=== PATIENT | female | born 1960 | race African-American/Black ===

== ENCOUNTER 2017-06-15 21:50 | Inpatient (IN) | payer MEDICAID ==
[~2017-06-15] VITALS: Ht 162.6 cm; Wt 78.7 kg
[~2017-06-15 21:50] MED LIST: ALBU2.5V13 IH; ALPR1TAB2 PO; AMLO5TAB88 PO; ASCO500C15 PO; ATOR10TA PO; AZEL137S7 BOTHNSTRLS; Benzonatate PO; CHOL200074 PO; CYAN10009 PO; FAMO40TA70 PO; FLUT1DIS3 INH; FURO-152 PO; GABA-531 PO; IBUP-2028 PO; IPRA0.2S51 NEB; LOSA25TA12 PO; MONT10TA21 PO; PHEN57OI23 RC; PRED5TAB48 PO; SUCR1TAB PO
[2017-06-15] MEDS ORDERED: METHYLPREDNISOLONE SOD SUCC 125 MG/2 ML VIAL IV STA (21:56)
[2017-06-15] MEDS ORDERED: MAGNESIUM 2 G PREMIX 50 ML IV ONE (22:00)
[2017-06-15] MEDS ORDERED: IPRATROPIUM/ALBUTEROL 0.5-3(2.5)MG/3ML NEB HHN ONE (22:00)
[2017-06-15] MEDS ORDERED: IPRATROPIUM/ALBUTEROL 0.5-3(2.5)MG/3ML NEB ONE (22:03)
[2017-06-15] MEDS ORDERED: LEVOFLOXACIN 750MG PREMIX 150 ML IV ONE (22:15)
[2017-06-15 22:27] LABS: BG BASE EXCESS -10.6 mmol/L (-2.0-2.0); BG BILEVEL POS AIRWAY PRESSURE 15/5; BG CARBOXYHEMOGLOBIN 0.3 % (0.5-1.5); BG DEOXYHEMOGLOBIN 25.8 % (0.0-5.0); BG FRACTION INSPIRED OXYGEN 100; BG HCO3 ACT 17.1 mmol/L (22.0-26.0); BG METHEMOGLOBIN 0.4 % (0.0-1.5); BG OXYHEMOGLOBIN 73.5 % (94.0-97.0); BG PCO2 45.6 mmHg (35.0-45.0); BG PH 7.193 (7.350-7.450); BG PO2 42.5 mmHg (75.0-100.0); BG SAMPLE SITE RIGHT RADIAL; BG VENT MODE MASK - BIPAP; BG VENT RATE 20 set
[2017-06-15 23:10] LABS: BASOPHILS % 0.9 % (0.0-2.0); EOSINOPHILS % 0.5 % (0.0-5.0); HEMATOCRIT. 37.6 % (36.0-48.0); HEMOGLOBIN. 12.2 g/dL (12.0-16.0); LYMPHOCYTES % 24.7 % (20.0-50.0); MEAN CORPUSCULAR HEMOGLOBIN 29.2 pg (28.0-32.0); MEAN CORPUSCULAR VOLUME 90.3 fL (81.0-99.0); MEAN PLATELET VOLUME 9.8 fl (7.4-10.4); NEUTROPHILS % 66.9 % (40.0-76.0); PLATELET 206 x1000/uL (130-400); RED BLOOD CELL COUNT 4.17 mill/uL (4.2-5.4); RED CELL DISTRIBUTION WIDTH 15.6 % (11.6-14.6)
[2017-06-15 23:17] LABS: INR 1.1; PARTIAL THROMBOPLASTIN TIME 21.4 sec (23.4-31.0); PROTHROMBIN TIME 11.2 sec (9.4-11.6)
[2017-06-15 23:25] LABS: CARBON DIOXIDE 25 mEq/L (21-32); CHLORIDE 109 mEq/L (98-107); CREATINE KINASE 105 IU/L (26-192); ETHANOL BLOOD < 10 mg/dL; TROPONIN I < 0.02 ng/mL (0.00-0.04)
[2017-06-16] VITALS (10 sets, daily range): BP systolic 106–121; BP diastolic 60–82
[2017-06-16 05:01] LABS: CLARITY URINE CLEAR (CLEAR); COLOR URINE YELLOW (YELLOW); GLUCOSE URINE 2+ (NEGATIVE); KETONES URINE NEGATIVE (NEGATIVE); LEUKOCYTE ESTERASE URINE TRACE (NEGATIVE); NITRITE URINE NEGATIVE (NEGATIVE); OCCULT BLOOD URINE NEGATIVE (NEGATIVE); PROTEIN URINE NEGATIVE (NEGATIVE); SPECIFIC GRAVITY URINE 1.024 (1.005-1.030); UROBILINOGEN URINE 0.2 E.U./dL (0.2-1.0)
[2017-06-16 05:18] LABS: *AMPHETAMINES SCREEN URINE NEGATIVE (NEGATIVE); *BARBITURATES SCREEN URINE NEGATIVE (NEGATIVE); *BENZODIAZEPINES SCREEN URINE NEGATIVE (NEGATIVE); *COCAINE SCREEN URINE NEGATIVE (NEGATIVE); CANNABINOID URINE SCREEN NEGATIVE (NEGATIVE); METHADONE URINE SCREEN NEGATIVE (NEGATIVE); OPIATES URINE SCREEN PRESUMTIVE POSITIVE (NEGATIVE); PHENCYCLIDINE URINE SCREEN NEGATIVE (NEGATIVE)
[2017-06-16] MEDS ORDERED: POTASSIUM CHLORIDE 20MEQ TABLET SR PO NR (07:15)
[2017-06-16] MEDS ORDERED: AMLO10TA80 PO (07:21)
[2017-06-16] MEDS: IPRATROPIUM/ALBUTEROL 0.5-3(2.5)MG/3ML NEB HHN SCH ×4 (07:38→20:34)
[2017-06-16] MEDS: CHOLECALCIFEROL (D3) 1000 UNIT TABLET PO SCH (08:22)
[2017-06-16] MEDS: METHYLPREDNISOLONE SOD SUCC 40 MG/ML VIAL IV SCH ×3 (08:22→23:11)
[2017-06-16] MEDS: FUROSEMIDE 20MG TABLET PO SCH (08:22)
[2017-06-16] MEDS: GABAPENTIN 300MG CAPSULE PO SCH ×2 (08:23→17:00)
[2017-06-16] MEDS: ASCORBIC ACID 500 MG TABLET PO SCH (08:23)
[2017-06-16] MEDS: CYANOCOBALAMIN 1000MCG TABLET PO SCH ×2 (08:23→17:56)
[2017-06-16] MEDS: LOSARTAN POTASSIUM 25 MG TABLET PO SCH ×2 (08:23→20:16)
[2017-06-16] MEDS ORDERED: MEDICATION NOT ON FORMULARY EA (Ascorbic Acid (Vitamin C) 500 MG) PO SCH (09:00)
[2017-06-16 09:41] LABS: HEMATOCRIT. 35.8 % (36.0-48.0); HEMOGLOBIN. 11.6 g/dL (12.0-16.0); MEAN CORPUSCULAR HEMOGLOBIN 29.5 pg (28.0-32.0); MEAN CORPUSCULAR VOLUME 90.8 fL (81.0-99.0); MEAN PLATELET VOLUME 9.7 fl (7.4-10.4); PLATELET 200 x1000/uL (130-400); RED BLOOD CELL COUNT 3.94 mill/uL (4.2-5.4); RED CELL DISTRIBUTION WIDTH 15.7 % (11.6-14.6)
[2017-06-16 09:45] LABS: CARBON DIOXIDE 23 mEq/L (21-32); CHLORIDE 107 mEq/L (98-107)
[2017-06-16] MEDS: MORPHINE SULFATE 2 MG/ML CPJ (NOT FOR IM USE) IV PRN (15:06)
[2017-06-16] MEDS ORDERED: IPRATROPIUM/ALBUTEROL 0.5-3(2.5)MG/3ML NEB HHN PRN (17:15)
[2017-06-16] MEDS: MONTELUKAST SODIUM 10MG TABLET PO SCH (17:55)
[2017-06-16] MEDS: ATORVASTATIN CALCIUM 10MG TABLET PO SCH (20:15)
[2017-06-16 23:12] LABS: PLATELET ESTIMATE NORMAL
[2017-06-17] VITALS (12 sets, daily range): BP systolic 91–125; BP diastolic 56–77
[2017-06-17] MEDS: MORPHINE SULFATE 2 MG/ML CPJ (NOT FOR IM USE) IV PRN ×2 (00:17→21:08)
[2017-06-17] MEDS: IPRATROPIUM/ALBUTEROL 0.5-3(2.5)MG/3ML NEB HHN SCH ×7 (00:18→23:56)
[2017-06-17] MEDS: ALPRAZOLAM 0.5 MG TABLET PO PRN (03:53)
[2017-06-17] MEDS: ASCORBIC ACID 500 MG TABLET PO SCH (09:02)
[2017-06-17] MEDS: LOSARTAN POTASSIUM 25 MG TABLET PO SCH ×2 (09:02→20:37)
[2017-06-17] MEDS: METHYLPREDNISOLONE SOD SUCC 40 MG/ML VIAL IV SCH ×3 (09:02→23:00)
[2017-06-17] MEDS: CHOLECALCIFEROL (D3) 1000 UNIT TABLET PO SCH (09:03)
[2017-06-17] MEDS: GABAPENTIN 300MG CAPSULE PO SCH ×2 (09:03→16:31)
[2017-06-17] MEDS: FUROSEMIDE 20MG TABLET PO SCH (09:03)
[2017-06-17] MEDS: CYANOCOBALAMIN 1000MCG TABLET PO SCH ×2 (09:04→16:31)
[2017-06-17 11:29] LABS: BG BASE EXCESS -1.4 mmol/L (-2.0-2.0); BG CARBOXYHEMOGLOBIN 0.3 % (0.5-1.5); BG DEOXYHEMOGLOBIN 3.7 % (0.0-5.0); BG FRACTION INSPIRED OXYGEN 21; BG HCO3 ACT 22.7 mmol/L (22.0-26.0); BG METHEMOGLOBIN 0.3 % (0.0-1.5); BG OXYGEN SATURATION 96.3 % (92.0-98.5); BG OXYHEMOGLOBIN 95.7 % (94.0-97.0); BG PCO2 35.9 mmHg (35.0-45.0); BG PH 7.418 (7.350-7.450); BG PO2 83.9 mmHg (75.0-100.0); BG SAMPLE SITE RIGHT BRACHIAL; BG TOTAL HEMOGLOBIN 12.3 g/dL (12.0-18.0); BG VENT MODE ROOM AIR
[2017-06-17] MEDS: MONTELUKAST SODIUM 10MG TABLET PO SCH (16:31)
[2017-06-17] MEDS: ATORVASTATIN CALCIUM 10MG TABLET PO SCH (21:04)
[2017-06-18] VITALS (12 sets, daily range): BP systolic 99–129; BP diastolic 67–89
[2017-06-18] MEDS: IPRATROPIUM/ALBUTEROL 0.5-3(2.5)MG/3ML NEB HHN SCH ×6 (03:57→23:48)
[2017-06-18] MEDS: METHYLPREDNISOLONE SOD SUCC 40 MG/ML VIAL IV SCH ×2 (09:17→17:10)
[2017-06-18] MEDS: GABAPENTIN 300MG CAPSULE PO SCH ×2 (09:18→17:10)
[2017-06-18] MEDS: FUROSEMIDE 20MG TABLET PO SCH (09:18)
[2017-06-18] MEDS: CYANOCOBALAMIN 1000MCG TABLET PO SCH ×2 (09:18→17:10)
[2017-06-18] MEDS: ASCORBIC ACID 500 MG TABLET PO SCH (09:18)
[2017-06-18] MEDS: LOSARTAN POTASSIUM 25 MG TABLET PO SCH ×2 (09:18→20:11)
[2017-06-18] MEDS: CHOLECALCIFEROL (D3) 1000 UNIT TABLET PO SCH (09:18)
[2017-06-18] MEDS: ONDANSETRON HCL 4MG/2ML VIAL IV PRN ×2 (10:46→20:11)
[2017-06-18] MEDS: MONTELUKAST SODIUM 10MG TABLET PO SCH (17:05)
[2017-06-18] MEDS: ATORVASTATIN CALCIUM 10MG TABLET PO SCH (20:11)
[2017-06-19] VITALS (10 sets, daily range): BP systolic 107–142; BP diastolic 80–92
[2017-06-19] MEDS: ALPRAZOLAM 0.5 MG TABLET PO PRN (00:01)
[2017-06-19] MEDS: IPRATROPIUM/ALBUTEROL 0.5-3(2.5)MG/3ML NEB HHN SCH ×2 (04:00→13:21)
[2017-06-19] MEDS: METHYLPREDNISOLONE SOD SUCC 40 MG/ML VIAL IV SCH ×3 (08:34→15:36)
[2017-06-19] MEDS: ONDANSETRON HCL 4MG/2ML VIAL IV PRN ×2 (08:34→15:36)
[2017-06-19] MEDS: CYANOCOBALAMIN 1000MCG TABLET PO SCH (08:35)
[2017-06-19] MEDS: ASCORBIC ACID 500 MG TABLET PO SCH (08:35)
[2017-06-19] MEDS: CHOLECALCIFEROL (D3) 1000 UNIT TABLET PO SCH (08:35)
[2017-06-19] MEDS: GABAPENTIN 300MG CAPSULE PO SCH (08:36)
[2017-06-19] MEDS: LOSARTAN POTASSIUM 25 MG TABLET PO SCH (08:36)
[2017-06-19] MEDS: FUROSEMIDE 20MG TABLET PO SCH (08:39)
== END 2017-06-19 18:44 | disposition home or self-care (01) | DRG 140 ==
LOC: ER 21:58 → EDBEDREQ 06-16 00:53 → ENRESERV 06-16 02:21 → 5EST 06-16 03:39
PROVIDERS: ADMIT Internal Medicine; ATTEND Internal Medicine
PROC: 5A09457 Assistance with Respiratory Ventilation, 24-96 Consecutive Hours, Continuous Positive Airway Pressure (ICD-10-PCS; principal; 2017-06-16)
DX: J44.1 Chronic obstructive pulmonary disease with (acute) exacerbation (principal); J96.01 Acute respiratory failure with hypoxia; J96.02 Acute respiratory failure with hypercapnia; I10 Essential (primary) hypertension; E11.9 Type 2 diabetes mellitus without complications; E78.5 Hyperlipidemia, unspecified; R13.10 Dysphagia, unspecified; F41.9 Anxiety disorder, unspecified; Z79.899 Other long term (current) drug therapy; Z88.6 Allergy status to analgesic agent; Z88.0 Allergy status to penicillin; Z88.8 Allergy status to other drugs, medicaments and biological substances; Z91.018 Allergy to other foods; Z91.041 Radiographic dye allergy status; Z99.81 Dependence on supplemental oxygen
CPT/HCPCS: 36415; 36600; 71010; 80048; 80053; 80305; 81001; 82375; 82550; 82805; 82962; 83605; 83690; 83880; 84443; 84484; 85025; 85610; 85730; 87040; 93005; 94640; 94660; 96365; 96366; 96367; 96375; 99291; G0482; J1956; J2270; J2405; J2920; J2930; J3475; J7620